=== PATIENT | female | born 1985 | race Caucasian/White ===

== ENCOUNTER → 2023-01-23 09:09 | Outpatient (BNVA) | payer OTHER, SELFPAY | PROVIDERS: Visit Provider Physician Assistant Surgical ==

== ENCOUNTER 2023-02-20 10:57 | Outpatient (AMB) | payer OTHER, SELFPAY ==
--- NOTE | 2023-02-20 10:58 | MHC.OFFVISWM ---
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 Her highest weight was 287 earlier this year. Her goal is to live longer and be healthier. She reports first being concerned about her weight 6 -7 years ago, SYED 8, no therapist presently.She has tried multiple methods of weight loss including [employer]bal[employer] without permanent results. 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 Her had GBP at [email or web address] 2 years ago, lost 350 lbs. Has SS done a BMS December 2022 - no sleep apnea She wakes at:6;30 am bed at11 pm Breakfast: 10 - 11am - collagen drink - with vitamins. 2-3 eggs with cheese, Sometimes - Chicory coffee with monk fruit and sugar free creamer. OR Nutri plus - 20 gram protein shake with coconut milk Lunch: 2pm- protein (chicken or tuna) in a wrap or sandwich. OR has soup. water Dinner: 7pm - protein and rice. - often the same thing. Vegetables 1-2 times per week. water After dinner:nothing Other snacks: none Liquids: [place] or diet soda (coke) twice per week with lunch. No fruit juices Alcohol intake: none, tobacco: none, marijuana: none Exercise: has gym membership - not for 2 months, nothing at home. Doing PT now for disclocated shoulder from 2 months. Last mammogram: never Last pap smear: has appt today control method:none for 10 years - see gymn today and will discuss SYED:8 ESS:8 GERD6: QOL:68 PFSH Surgical History No history of previous surgery Family History Mother No problems noted. Father No problems noted. Brother Diabetes Sister Arthritis Social History Alcohol intake: never Patient Tobacco Use Status: Never used Tobacco Physical Exam Vital Signs: Last Vital Signs Temp 97.7 F 02/20/23 11:03 Pulse 66 02/20/23 11:03 BP 114/57 L 02/20/23 11:03 Pulse Ox 95 02/20/23 11:03 Oxygen Delivery Method Room Air 02/20/23 11:03 BMI result Body Mass Index 45.9 Const General: cooperative, no acute distress and well developed Nutritional Appearance: obese Orientation/consciousness: patient oriented x3 HEENT Head: Yes normal to inspection Neck Neck: Yes normal visual inspection Thyroid: Thyroid normal Resp Effort & Inspection: normal respiratory effort Auscultation: clear to auscultation bilaterally Cardio Rate: regular rate Rhythm: regular rhythm Heart sounds: S1 normal heart sound present, S2 normal heart sound present and no murmurs GI Inspection: No distended, Yes Abdominal panniculus present and Yes obesity Palpation (GI): Soft to palpation, nontender and no guarding Skin Other: af ew area of folliculitis on abdomen General skin exam: no rashes or lesions noted and other (warm and dry) Wounds: no wounds Hair: normal Neuro General: patient oriented x3 Extrem General: Yes no pedal edema and Yes no calf tenderness Psych Attitude: cooperative Thought process: Normal thought process present Thought content: Normal thought content present Insight: Good insight present (Psych) Judgement: Good judgement present (Psych) Assessment & Plan Assessment & Plan (1) Morbid obesity: Code(s): E66.01 - Morbid (severe) obesity due to excess calories Plan: This is a 37 yo woman with morbid obesity who will start SW program to prepare for bariatric surgery. Blood work, h pylori , CXR, ECG, Abd ULS and UGI have been ordered. She is being scheduled for RD and BH initial consultations. She will start SWL classes and watch at 3 classes before her next appt with Kerline. 1. Adequate sleep of 7-8 hours per night discussed 2. Healthy meal plan - All meals/MR's need to take 20 minutes to complete 8am - 30 gram shake - Orgain and UAM 11 am - bar or yogurt/cc 3 pm- 30 gram shake 7 pm- dinner of 6 oz lean protein, 6 oz vegetable, 1 serving fruit - needs to learn varitey of vegetables and proteins Exercise - Cardio 4 d week = treadmill at speed 2.8, incline 3-5 - to burn 300 calories OR elliptical OR LS 2mile videos 3 d/ wk - TBP The importance of avoiding and breast feeding for at least 18 months after bariatric surgery was discussed in the information session and was reinforced today. Will discuss with gym today Pt has purchase dbody composition analyzer (recommended list given to patient) and weight herself weekly. Next appt with me in 3 weeks. Text me with any questions and weekly weights. Patient is morbidly obese and is not considered stable at this time.?I spent a total of 60 minutes reviewing/updating records, examining the patient and counseling the patient on weight management as detailed above. Orders: Orders Vitamin B12 and Folate Today Z01.818 - Encounter for other preprocedural examination Comprehensive Met. Panel Today Z01.818 - Encounter for other preprocedural examination C Reactive Protein Today Z01.818 - Encounter for other preprocedural examination Ferritin Today Z01.818 - Encounter for other preprocedural examination Hemoglobin A1c Today Z01.818 - Encounter for other preprocedural examination Insulin Today Z01.818 - Encounter for other preprocedural examination IRON PROFILE Today Z01.818 - Encounter for other preprocedural examination Lipid Panel Today Z01.818 - Encounter for other preprocedural examination PTHI Today Z01.818 - Encounter for other preprocedural examination TSH reflex Free T4 Today Z01.818 - Encounter for other preprocedural examination Vitamin A Today Z01.818 - Encounter for other preprocedural examination Vitamin B1 Today Z01.818 - Encounter for other preprocedural examination Vitamin D 25-OH Total Today Z01.818 - Encounter for other preprocedural examination Zinc Today Z01.818 - Encounter for other preprocedural examination ECG 12 lead EKG Today Z.818 - Encounter for other preprocedural examination FL upper GI w air Today Z01.818 - Encounter for other preprocedural examination Complete Blood Count Auto Diff Today Z01.818 - Encounter for other preprocedural examination H Pylori Breath Test Today Z01.818 - Encounter for other preprocedural examination US abdomen comp w elastography Today Z01.818 - Encounter for other preprocedural examination XR chest 2V Today Z01.818 - Encounter for other preprocedural examination Referrals Behavioral Health Referral Z01.818 - Encounter for other preprocedural examination Nutrition/Dietitian Referral Z01.818 - Encounter for other preprocedural examination Coding Level of Care Code New Pt Level 5 (65308) Diagnoses Morbid obesity E66.01
[2023-02-20 11:03] VITALS: BP 114/57; PULSE 66; TEMP 36.5; O2SAT 95; BMI 45.9
== END 2023-02-20 12:12 | disposition home or self-care (01) ==
PROVIDERS: Visit Provider Physician Assistant
DX: E66.01 Morbid (severe) obesity due to excess calories (principal); Z68.42 Body mass index [BMI] 45.0-49.9, adult
CPT/HCPCS: 99205

== ENCOUNTER 2023-02-20 10:57 | Outpatient (REF) | payer OTHER, SELFPAY ==
[2023-02-23 12:40] LABS: H Pylori Breath Test Negative (Negative)
== END 2023-02-20 10:58 | disposition home or self-care (01) ==
LOC: HO.LNP 10:57
PROVIDERS: Visit Provider Physician Assistant
DX: Z01.818 Encounter for other preprocedural examination (principal); E66.01 Morbid (severe) obesity due to excess calories
CPT/HCPCS: 36415; 83013; 99202; 99211

== ENCOUNTER 2023-02-24 11:48 | Outpatient (REF) | payer OTHER, SELFPAY ==
[2023-02-24 12:06] LABS: MANUAL DIFF FLAG NO
[2023-02-24 13:23] LABS: Basophils Percent Auto 0.2 % (0-2); Eosinophils Absolute Auto 0.1 X10*3/uL (0.0-0.4); Eosinophils Percent Auto 1.1 % (0-4); Hematocrit 40.4 % (37.0-47.0); Hemoglobin 13.2 g/dl (12.0-16.0); Imm Gran Abs Auto 0.01 X10*3/uL (0.00-0.03); Imm Gran Pct Auto 0.2 % (0.0-0.4); Lymphocytes Absolute Auto 1.7 X10*3/uL (1.2-4.9); Lymphocytes Percent Auto 31.6 % (20-40); Mean Corpuscular HGB Conc 32.7 g/dl (31.0-35.0); Mean Corpuscular Hemoglobin 28.3 pg (27.0-33.0); Mean Corpuscular Volume 86.5 fL (80.0-98.0); Mean Platelet Volume 10.6 fL (9.4-12.3); Monocytes Absolute Auto 0.3 X10*3/uL (0.1-1.2); Monocytes Percent Auto 6.1 % (2-11); Neutrophils Absolute Auto 3.2 x10*3/uL (2.0-8.3); Neutrophils Percent Auto 60.8 % (45-73); Platelet Count 323 X10*3/uL (160-400); Red Blood Count 4.67 X10*6/uL (4.20-5.50); Red Cell Distribution Width 12.7 % (11.0-16.0); White Blood Count 5.3 X10*3/uL (4.8-10.8)
[2023-02-24 15:31] LABS: Alanine Aminotransferase 25 U/L (0-31); Alkaline Phosphatase 38 U/L (39-117); Anion Gap 12 (12-20); Aspartate Amino Transferase 21 U/L (5-31); Bilirubin Total 0.4 mg/dL (0.0-1.0); Blood Urea Nitrogen 14 mg/dL (9-16); C Reactive Protein 1.06 mg/dL (< or = 0.50); Calcium 9.2 mg/dL (8.4-10.2); Carbon Dioxide 25 mmol/L (22-29); Chloride 109 mmol/L (96-108); Cholesterol 172 mg/dL; Estimated Glomerular Filt Rate > 60; Ferritin 80 ng/mL (10-122); Glucose Random 87 mg/dL (60-115); HDL Cholesterol 41 mg/dL; Iron 103 mcg/dL (30-160); LDL Cholesterol Calculated 115 mg/dl; Percent Iron Saturation 38 % (15-50); Potassium 3.7 mmol/L (3.3-5.1); Sodium 142 mmol/L (135-145); TSH reflex Free T4 1.59 uIU/mL (0.32-4.0); Total Iron Binding Capacity 273 mcg/dL (228-428); Total Protein 7.7 g/dL (6.5-8.0); Triglycerides 84 mg/dL; Unsaturated Iron Binding 170 ug/dL; Vitamin D 25-OH Total 31.3 ng/mL (>30)
[2023-02-24 15:36] LABS: Folate 12.4 ng/mL (> or = 4.0); Vitamin B12 601 pg/mL (200-900)
[2023-02-24 18:34] LABS: Insulin 7 uU/mL (2-29)
[2023-02-25 03:25] LABS: Estimated Average Glucose 94 mg/dL; Hemoglobin A1c % 4.9 %
[2023-02-27 12:04] LABS: PTHI 64 pg/mL (16-77)
[2023-02-28 21:09] LABS: Zinc 68 mcg/dL (60-130)
[2023-03-02 14:34] LABS: Vitamin A 36 mcg/dL (38-98)
[2023-03-02 14:49] LABS: Vitamin B1 10 nmol/L (8-30)
== END 2023-02-24 11:49 | disposition home or self-care (01) ==
LOC: HO.LAB 11:48
PROVIDERS: Visit Provider Physician Assistant
DX: Z01.818 Encounter for other preprocedural examination (principal)
CPT/HCPCS: 36415; 80053; 80061; 82306; 82607; 82728; 82746; 83036; 83525; 83540; 83970; 84425; 84443; 84590; 84630; 85025; 86140

== ENCOUNTER 2023-02-27 09:59 | Outpatient (REF) | payer OTHER, SELFPAY ==
--- NOTE | ~2023-02-27 | XR_ITS ---
EXAMINATION: XR CHEST CLINICAL INFORMATION: Encounter for preprocedural COMPARISON: None TECHNIQUE: 2 views of the chest. FINDINGS: Heart size normal. No focal consolidation to suggest pneumonia. No pleural effusion. Degenerative changes in the thoracic spine. There is no gross pneumothorax. XR/XR chest 2V IMPRESSION: No focal consolidation to suggest pneumonia.
--- NOTE | ~2023-02-27 | FL_ITS ---
EXAMINATION: XR FLUOROSCOPY UPPER GI WITH AIR CLINICAL INFORMATION: Obesity. Preop. COMPARISON: None available. TECHNIQUE: Upper GI was performed using thin and thick barium and effervescent granules FINDINGS: Esophageal motility is normal. There is mild gastroesophageal reflux. No esophageal hernia. The stomach and duodenum are normal. No fold thickening, mass, ulcer or stricture is seen. FLUOROSCOPY TIME: 0.8 minutes DOSE AREA PRODUCT: 7.9 paz per centimeter squared. 19 saved fluoroscopic images. FL/FL upper GI w air IMPRESSION: Mild gastroesophageal reflux otherwise unremarkable exam.
--- NOTE | 2023-02-27 10:43 | ECG_ITS ---
Test Reason : PREOP Blood Pressure : / mmHG Vent. Rate : 056 BPM Atrial Rate : 056 BPM P-R Int : 138 ms QRS Dur : 094 ms QT Int : 412 ms P-R-T Axes : 028 005 023 degrees QTc Int : 397 ms Sinus bradycardia with sinus arrhythmia Otherwise normal ECG No previous ECGs available Referred By: Mildred Mckinnon Electronically Signed By:BHARGAV JONES MD
== END 2023-02-27 10:00 | disposition home or self-care (01) ==
LOC: HO.XRAY 09:59
PROVIDERS: Visit Provider Physician Assistant
DX: Z01.818 Encounter for other preprocedural examination (principal)
CPT/HCPCS: 71046; 74246; 93005

== ENCOUNTER → 2023-02-27 09:59 | Outpatient (BNV) | payer OTHER, SELFPAY | PROVIDERS: Visit Provider Radiology Diagnostic Radiology | DX: Z01.818 Encounter for other preprocedural examination (principal) | CPT/HCPCS: 74246 ==

== ENCOUNTER → 2023-02-27 10:43 | Outpatient (BNV) | payer OTHER, SELFPAY | PROVIDERS: Visit Provider Internal Medicine Cardiovascular Disease | DX: R00.1 Bradycardia, unspecified (principal) | CPT/HCPCS: 93010 ==

== ENCOUNTER → 2023-03-13 08:41 | Outpatient (BNVA) | payer OTHER, SELFPAY | PROVIDERS: Visit Provider Dietitian, Registered | DX: E66.01 Morbid (severe) obesity due to excess calories (principal); Z68.41 Body mass index [BMI] 40.0-44.9, adult; Z71.3 Dietary counseling and surveillance | CPT/HCPCS: 97802 ==

== ENCOUNTER 2023-03-15 08:57 | Outpatient (REF) | payer OTHER, SELFPAY ==
--- NOTE | ~2023-03-15 | US_ITS ---
EXAMINATION: US COMPLETE ABDOMEN WITH LIVER ELASTOGRAPHY CLINICAL INFORMATION: Recently COMPARISON: None available. TECHNIQUE: Real-time imaging of the abdominal viscera. Noninvasive ultrasound liver fibrosis assessment is performed using Reed ElastPQ point quantification shear wave elastography (2D-SWE) with a C5-2 MHz transducer. Multiple elastography samples are obtained. FINDINGS: PANCREAS: Predominantly obscured by overlying bowel gas ABDOMINAL AORTA: The proximal, middle, and distal aortic segments are normal in caliber. INFERIOR VENA CAVA: Visualized portions are normal. LIVER: Diffuse increased echogenicity. No focal lesion or intrahepatic biliary duct dilatation. The right lobe measures 16.6 cm in length. The left lobe measures 11.1 cm in length. Portal flow is hepatopedal Shear wave liver elastography median stiffness is 1.36 m/s (reference: normal median stiffness is 1.3 m/s or less). IQR/median stiffness to assess sampling precision is 0.1 (reference: good quality data set is IQR/median stiffness of 0.15 or less). GALLBLADDER: Normal. The gallbladder is physiologically distended without evidence of stones, sludge, polyps, wall thickening or pericholecystic fluid. COMMON BILE DUCT: Normal in caliber measuring 0.3 cm in diameter. RIGHT KIDNEY: Normal. No hydronephrosis. No renal calculi or focal parenchymal lesions. The kidney measures 12.9 cm in maximum dimension. LEFT KIDNEY: Normal. No hydronephrosis. No renal calculi or focal parenchymal lesions. The kidney measures 12.1 cm in maximum dimension. SPLEEN: Normal. The spleen measures 9.8 cm in maximum dimension. FREE FLUID: None. US/US abdomen comp w elastography IMPRESSION: 1. Changes of hepatic steatosis. Limited visualization of the pancreas. 2. Liver elastography: In the absence of other known clinical signs, measurements rule out compensated advanced chronic liver disease. If there are known clinical signs, further testing may be needed for confirmation. REFERENCE: Society of Radiologists in Ultrasound Liver Stiffness Thresholds (2020): LIVER STIFFNESS THRESHOLDS: *Liver Stiffness equal or less than 1.3 m/s: High probability of being normal. *Liver Stiffness less than 1.7 m/s: In the absence of other known clinical signs, rules out compensated advanced chronic liver disease. *Liver Stiffness 1.7-2.1 m/s: Suggestive of compensated advanced chronic liver disease but need further test for confirmation. *Liver Stiffness over 2.1 m/s: Rules in compensated advanced chronic liver disease. *Liver Stiffness over 2.4 m/s: Suggestive of clinically significant portal hypertension. QUALITY OF DATA SET: *IQR/Median value equal or less than 0.15 implies a quality data set. *IQR/Median value over 0.15 implies a poor quality data set. SIGNIFICANT CHANGE FROM PRIOR EXAM: Significant change if liver stiffness measurement is 10% or greater from prior exam. OTHER CONSIDERATIONS: The stage of liver fibrosis may be overestimated in the setting of acute hepatitis, liver inflammation, elevated liver function tests, hepatic vascular congestion, obstructive cholestasis, non-fasting state, and infiltrative diseases such as amyloidosis and lymphoma. In some patients with NAFLD, the liver stiffness thresholds for compensated advanced chronic liver disease may be lower. In causes other than viral hepatitis and NAFLD, liver stiffness thresholds are not well established.
== END 2023-03-15 08:58 | disposition home or self-care (01) ==
LOC: HO.US 08:57
PROVIDERS: Visit Provider Physician Assistant
DX: Z01.818 Encounter for other preprocedural examination (principal)
CPT/HCPCS: 76705; 76981; 99212

== ENCOUNTER 2023-03-15 09:35 | Outpatient (AMB) | payer OTHER, SELFPAY ==
--- NOTE | 2023-03-15 09:46 | A.OFFVIS_ITS ---
Intake VS Expanded 03/15/23 09:55 Height 5 ft 3 in Weight 253 lb 6.4 oz BMI 44.9 BP 110/60 Blood Pressure Location Rt brachial Blood Pressure Position Sitting Pulse 69 Pulse Source Pulse Oximeter Temp 97.4 F Temperature Source Temporal Artery Scan Pulse Oximetry 99 Oxygen Delivery Method Room Air Body Fat 133.2 Body Fat Percentage 52.6 Free Fat Mass 120.2 Muscle Mass 114.0 Visceral Mass 15.0 Water Mass 86.2 BMR 1,766 Intake Visit Reasons: (OV) F/U SWL Allergies pepperoni Allergy (Unknown, Uncoded 08/29/19 00:00) hives HPI HPI Comments History of Present Illness Details This is the patients second appt for SWL. Starting weight was 263.8 lbs on 02/20/23. TBWL is 10.4 lbs or 3.9% TBWL. Meal plan: 8-9 am - chickory coffee - monk fruit and UAM 9:30 am - Nutriplus - 1.5 scoops =30 grams with UAM 1pm - 6oz frozen mixed vegetables -4d/wk, 3 d raw vegetable. 6 oz chicken, tuna, lean beef. bazmati and sweet potato 5pm - yogurt or hb egg 7-8 pm - another meal Exercise plan: none yet Pre op work up completed as follows: SWL classes - 10/22 appts - [facility] 03/27 appts - follow up 03/31 H pylori - negative Labs - vit a defic CXR and ECG - both normal ULS - not read yet, done today UGI - mild reflux PFSH Surgical History No history of previous surgery Family History Mother No problems noted. Father No problems noted. Brother Diabetes Sister Arthritis Social History Alcohol intake: never Patient Tobacco Use Status: Never used Tobacco Physical Exam Vital Signs: Last Vital Signs Temp 97.4 F 03/15/23 09:55 Pulse 69 03/15/23 09:55 BP 110/60 03/15/23 09:55 Pulse Ox 99 03/15/23 09:55 Oxygen Delivery Method Room Air 03/15/23 09:55 BMI result Body Mass Index 44.9 Assessment & Plan Assessment & Plan (1) Morbid obesity: Code(s): E66.01 - Morbid (severe) obesity due to excess calories Plan: Good start with 3.9 % , needs to make some minor adjustments to her meal plan. Stop bazmati rice, add 1 serving fruit per day, more variety in vegetables. Exercise - must start now. minimum of 4d/ week either LS 2 miles or walk for 1.5 miles in 30 minutes. Text me progress and I will offer recommendations. Next appt with me in 3 weeks, all upcoming appts reviewed. Patient is morbidly obese and is not considered stable at this time. I spent 30 minutes in total with patient reviewing/updating records, examining the patient and counseling the patient on weight management as detailed above. Coding Level of Care Code Est Pt Level 4 (33171) Diagnoses Morbid obesity E66.01
[2023-03-15 09:55] VITALS: BP 110/60; PULSE 69; TEMP 36.3; O2SAT 99; BMI 44.9
== END 2023-03-15 10:37 | disposition home or self-care (01) ==
PROVIDERS: Visit Provider Physician Assistant
DX: E66.01 Morbid (severe) obesity due to excess calories (principal); Z68.41 Body mass index [BMI] 40.0-44.9, adult
CPT/HCPCS: 99214

== ENCOUNTER 2023-03-27 08:33 | Outpatient (AMB) | payer OTHER, SELFPAY ==
--- NOTE | 2023-03-27 08:44 | MHC.WMTHER ---
Intake Intake Visit Reasons: (OV) BH Intake Allergies pepperoni Allergy (Unknown, Uncoded 08/29/19 00:00) hives PFSH Surgical History No history of previous surgery Family History Mother No problems noted. Father No problems noted. Brother Diabetes Sister Arthritis Social History Alcohol intake: never Patient Tobacco Use Status: Never used Tobacco Behavioral Health Assessment Weight Management Therapy Therapy Notes Details Pt is looking to have weight loss surgery to help improve her health and quality of life. Pt reported seeing a therapist many years ago however does not have one currently. She reported no history of problems with drugs or alcohol. She did report some drinking more so than usual after her mom due to depression. Pt has never been hospitalized for psychiatric reasons and never been diagnosed with an eating disorder. Presenting Concerns Referral Source provider Reason for referral weight loss surgery evaluation Precipitating Event obesity Living Situation Current Living Situation Own At risk of losing current housing? No Satisfied with current living situation? Yes Comments Pt lives with her and their dog. Food/Weight/Diet Expectations of change weight loss and maintenance History/Relationship with food She reported being raised with having to clear her plate and eat until she was done. Recently prior to loosing 20lbs she would eat out everyday, was not cooking at home, sandwiches. Some occasional emotional eating especially after her mother . History/Relationship with weight Pt stated that she has been struggling with her weight for about 10 years now. In 2005 her mother at age 41 and then she gained 80-100lbs. History/Relationship with dieting [facility] 6 years ago lost 80lbs. Recently lost 20lbs prior to the program through life style and nutrition changes. Binge Eating Do you frequently eat large amounts of food in short periods of time, not feeling physically hungry? No Do you feel out of control when you eat a large amount of food in a short period of time? No Do you eat large amounts of food rapidly and typically alone? Yes Night Eating Do you wake up at least once during the night to eat? No If you wake up in the night, do you find that it is necessary to eat something in order to fall back asleep? No Do you have little or no appetite in the morning and feel very hungry in the evening, often overeating between dinner and when you go to bed? Yes Social History Family history and relationship Pt is the middle child and when her mother in 2005 she had to come home from college and take care of her siblings. She reported that was a major life shift for her. She was raised by her mother and step father. She is currently to her for ten years and has no children. 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 best friend Community support network of people who hold each other accountability Cultural/Ethnic information Legal Involvement and History Current or historical involvement with the legal system? none Education Highest grade completed degree in aesthetics. Preferred learning style Auditory, Verbal, Written, Learn by doing and Visual Currently enrolled in educational program? No Interested in further educational program? 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 No Meaningful activities personal training Financial Situation Describe current financial situation Comfortable Financial assistance? None Service Service? No Mental Health and Addiction Treatment Current/Past substance abuse? No Current/Past addictive behavior concerns? No Medical and Physical Health Summary Physical exam in the last year? Yes Pain Screening Current pain? No Pain in the last few months? No Medications Is the patient compliant with medications? Yes Does the patient have Cutler Guardian in place? Not applicable Does the patient use complimentary health approaches? No Trauma/Abuse History History of trauma? Yes Questionnaires PHQ-9 Over the last 2 weeks, how often have you been bothered by any of the following problems? 1. Little interest or pleasure in doing things: not at all 2. Feeling down, depressed, or hopeless: not at all 3. Trouble falling or staying asleep, or sleeping too much: not at all 4. Feeling tired or having little energy: several days 5. Poor appetite or overeating: several days 6. Feeling bad about yourself - or that you are a failure or have let yourself or your family down: not at all 7. Trouble concentrating on things, such as reading the newspaper or watching television: not at all 8. Moving or speaking so slowly that other people could have noticed. Or the opposite - being so fidgety or restless that you have been moving around a lot more than usual: not at all 9. Thoughts that you would be better off or of hurting yourself in some way: not at all Total score: 2 Source: Developed by Drs. Marcos Cheek, Caryn Robledo, Simon Schulte and colleagues, with an educational lana from [employer]. Binge Eating Scale Group 1 A. I don't feel self-conscious about my wt. or body size when I'm with others. B. I feel concerned about how I look to others, but it normally does not make me fell disappointed with myself C. I do get self-conscious about my appearance and wt. which makes me feel disappointed in myself. D. I feel very self-conscious about my wt. and frequently I feel intense shame and disgust for myself. I try to avoid social contacts because of my self-consciousness. Response Group 1: B Group 2 A. I don't have any difficulty eating slowly in the proper manner. B. Although I seem to gobble down foods, I don't end up feeling stuffed because of eating to much. C. At times, I tend to eat quickly and then, I feel uncomfortably full afterwards. D. I have the habit of bolting down my food, without really chewing it. When this happens I usually feel uncomfortably stuffed because I've eaten to much. Response Group 2: C Group 3 A. I feel capable to control my eating urges when I want to. B. I feel like I have failed to control my eating more than the average person. C. I feel utterly helpless when it comes to feeling in control of my eating urges. D. Because I feel so helpless about controlling my eating I have become very desperate about trying to get control. Response Group 3: A Group 4 A. I don't have the habit of eating when I'm bored. B. I sometimes eat when I'm bored, but often I'm able to get busy and get my mind off food. C. I have a regular habit of eating when I'm bored, but occasionally, I can use some other activity to get my mind off eating. D. I have a strong habit of eating when I'm bored. Nothing seems to help me breath the habit. Response Group 4: B Group 5 A. I'm usually physically hungry when I eat something. B. Occasionally, I eat something on impulse even though I really am not hungry. C. I have the regular habit of eating foods, that I might not really enjoy, to satisfy a hungry feeling even though physically, I don't need the food. D. Although I'm not physically hungry, I get a hungry feeling in my mouth that only seems to be satisfied when I eat a food, like sandwich, that fills my mouth. Sometimes, when I eat the food to satisfy my mouth hunger, I then spit the food out so I won't gain weight. Response Group 5: B Group 6 A. I don't feel any guilt or self-hate after I overeat. B. After I overeat, occasionally I feel guilt or self-hate. C. Almost all the time I experience strong guilt or self-hate after I overeat. Response Group 6: B Group 7 A. I don't lose total control of my eating when dieting even after periods when I overeat. B. Sometimes when I eat a forbidden food on a diet, I feel like I blew it and eat even more. C. Frequently, I have the habit of saying to myself, I've blown it now, why not go all the way, when I overeat on a diet. When that happens I eat more. D. I have a regular habit of starting a strict diets for myself but I break the diets by going on an eating binge. My life seems to be either a feast or famine. Response Group 7: B Group 8 A. I rarely eat so much food that I feel uncomfortably stuffed afterwards. B. Usually about once a month, I each such a quantity of food, I end up feeling very stuffed. C. I have regular periods during the month when I eat large amounts of food, either at mealtime or at snacks. D. I eat so much food that I regularly feel quite uncomfortable after eating and sometimes a bit nauseous. Response Group 8: B Group 9 A. My level of calorie intake does not go up very high or go down very low on a regular basis. B. Sometimes after I overeat, I will try to reduce my caloric intake to almost nothing to compensate for the excess calories I've eaten. C. I have a regular habit of overeating during the night. It seems that my routine is not to be hungry in the morning but overeat in the evening. D. In my adult years, I have had week-long periods where I practically starve myself. This follows periods when I overeat. It seems I live a life of either feast or famine. Response Group 9: A Group 10 A. I usually am able to stop eating when I want to. I know when enough is enough. B. Every so often, I experience a compulsion to eat which I can't seem to control. C. Frequently, I experience strong urges to eat which I seem unable to control, but at other times I can control my eating urges. D. I feel incapable of controlling urges to eat. I have a fear of not being able to stop eating voluntarily. Response Group 10: B Group 11 A. I don't have any problem stopping eating when I feel full. B. I usually can stop eating when I feel full but occasionally overeat leaving me feeling uncomfortably stuffed. C. I have a problem stopping eating once I start and usually I feel uncomfortably stuffed after I eat a meal. D. Because I have a problem not being able to stop eating when I want, I sometimes have to induce vomiting to relieve my stuffed feeling. Response Group 11: B Group 12 A. I seem to eat just as much when I'm with others, Family social gatherings as when I'm by myself. B. Sometimes, when I'm with other persons, I don't eat as much as I want to eat because I'm self-conscious about my eating. C. Frequently, I eat only a small amount of food when others are present, because I'm very embarrassed about my eating. D. I feel so ashamed about overeating that I pick times to overeat when I know no one will see me. I feel like a closet eater. Response Group 12: A Group 13 A. I eat three meals a day with only an occasional between meal snack. B. I eat 3 meals a day, but I also normally snack between meals. C. When I am snacking heavily, I get in the habit of skipping regular meals. D. There are regular periods when I seem to be continually eating, with no planned meals. Response Group 13: A Group 14 A. I don't think much about trying to control unwanted eating urges. B. At least some of the time, I feel my thoughts are pre-occupied with trying to control my eating urges. C. I feel that frequently I spend much time thinking about how much I ate or about trying not to eat anymore. D. It seems to me that most of my waking hours are pre-occupied by thoughts about eating or not eating. I feel like I'm constantly struggling not to eat. Response Group 14: A Group 15 A. I don't think about food a great deal. B. I have strong craving for food but they last only for brief periods of time. C. I have days when I can't seem to think about anything else but food. D. Most of my days seem to be pre-occupied with thoughts about food. I feel like I live to eat. Response Group 15: B Group 16 A. I usually know whether or not I'm physically hungry. I take the right portion of food to satisfy me. B. Occasionally, I feel uncertain about knowing whether or not I'm physically hungry. A these times it's hard to know how much food I should take to satisfy me. C. Even though I might know how many calories I should eat, I don't have any idea what is a normal amount of food for me. Response Group 16: A Binge Eating Score: 11 Score less than 17 Minimal Risk Score between 18-26 Moderate Risk Score between 27-46 High Risk Assessment & Plan Assessment & Plan (1) Adjustment disorder, unspecified: Code(s): F43.20 - Adjustment disorder, unspecified (2) Morbid obesity: Code(s): E66.01 - Morbid (severe) obesity due to excess calories Plan Pt does not have any serious mental health barriers, she is cleared for surgery when ready. She is asking for additional therapeutic support to address some trauma from loss of her mother. Coding Level of Care Code Psy Diag Luigi (44691) Diagnoses Adjustment disorder, unspecified F43.20 Morbid obesity E66.01 Time Spent (min) 50
== END 2023-03-27 12:50 | disposition home or self-care (01) ==
PROVIDERS: Visit Provider Counselor Mental Health
DX: F43.20 Adjustment disorder, unspecified (principal); E66.01 Morbid (severe) obesity due to excess calories
CPT/HCPCS: 90791

== ENCOUNTER → 2023-03-27 08:33 | Outpatient (BNVA) | payer OTHER, SELFPAY | PROVIDERS: Visit Provider Counselor Mental Health ==

== ENCOUNTER 2023-03-31 09:12 | Outpatient (AMB) | payer OTHER, SELFPAY ==
--- NOTE | 2023-03-31 09:06 | MHC.AMNUTRGE ---
Intake VS Expanded 03/31/23 09:22 Height 5 ft 3 in Weight 246 lb BMI 43.6 Intake Visit Reasons: VIDEO F/U SWL Allergies pepperoni Allergy (Unknown, Uncoded 08/29/19 00:00) hives HPI Nutrition Presentation Details GENERAL [employer]ARM [employer] weight 263# - current weight 246# Reason for consult elevated BMI Diet Assmnt Details Switched protein shakes to Nutriplus. donig 2 shakes, 1 yogurt and 1 meal . Not measuring protein portions, but using small containers. Has not purchased a food scale Exercise: more walking is also doing some upper body strength training. Is interested in getting a new gym membership. wants to do aqua aerobics. SWL online classes 10/22 scored very well . Her had GBP at [employer] and is doing great losing over 360lbs Dietary counseling reduction Diagnosis Nutrition problem #1 overweight/obesity As related to (etiology) #1 excess energy intake and physical inactivity As evidenced by (sign/symptom) #1 high BMI Monitoring/Goals Nutrition problem monitoring total energy intake, level of knowledge/skill, total PRO intake, total CHO intake and weight Outcome progress progressing Learning/Education Readiness to learn excellent Stages of change action Educational materials provided Yes (all preop nutrition handouts ) Most Recent Diabetes Results: Cholesterol 172 mg/dL 02/24/23 HDL Cholesterol 41 mg/dL 02/24/23 Triglycerides 84 mg/dL 02/24/23 Creatinine 0.67 mg/dL (0.5-1.4) 02/24/23 Blood Urea Nitrogen 14 mg/dL (9-16) 02/24/23 Sodium 142 mmol/L (135-145) 02/24/23 Potassium 3.7 mmol/L (3.3-5.1) 02/24/23 Chloride 109 mmol/L (96-108) H 02/24/23 Carbon Dioxide 25 mmol/L (22-29) 02/24/23 Calcium 9.2 mg/dL (8.4-10.2) 02/24/23 AST 21 U/L (5-31) 02/24/23 ALT 25 U/L (0-31) 02/24/23 Total Protein 7.7 g/dL (6.5-8.0) 02/24/23 Albumin 4.0 g/dL (3.5-5.0) 02/24/23 [facility] Surgical History No history of previous surgery Family History Mother No problems noted. Father No problems noted. Brother Diabetes Sister Arthritis Social History Alcohol intake: never Patient Tobacco Use Status: Never used Tobacco Assessment & Plan Assessment & Plan (1) Morbid obesity: Code(s): E66.01 - Morbid (severe) obesity due to excess calories Patient Instructions: Patient is cleared from a nutrition standpoint for bariatric surgery she is doing great she is making changes slowly but nonetheless, is making progress at a pace that is sustainable for her. Complete online classes. Will schedule follow-up in a few weeks to answer any questions she may have regarding postop nutrition - but patient may cancel this appointment if she feels it is not needed. Telehealth Telehealth Location of provider rendering services: practice address Location of patient: address on file Patient Identification confirmed using: Name, : Yes Telehealth method: video Patient verbally consented to treatment: Yes Patient verbally consented to billing insurance company: Yes Patient informed of any privacy concerns related to visit: Yes Minutes spent on Phone/Video with Pt.: 20 Coding Level of Care Code Nutr Indiv Subseq ([id number]) Diagnoses Morbid obesity E66.01 Time Spent (min) 20
[2023-03-31 09:22] VITALS: BMI 43.6
== END 2023-03-31 09:22 | disposition home or self-care (01) ==
LOC: HO.HBS 09:12
PROVIDERS: Visit Provider Dietitian, Registered
DX: E66.01 Morbid (severe) obesity due to excess calories (principal)

== ENCOUNTER → 2023-03-31 09:12 | Outpatient (BNVA) | payer OTHER, SELFPAY | PROVIDERS: Visit Provider Dietitian, Registered | DX: E66.01 Morbid (severe) obesity due to excess calories (principal); Z68.41 Body mass index [BMI] 40.0-44.9, adult; Z71.3 Dietary counseling and surveillance | CPT/HCPCS: 97803 ==

== ENCOUNTER 2023-04-14 08:59 | Outpatient (AMB) | payer OTHER, SELFPAY ==
--- NOTE | 2023-04-14 09:00 | A.OFFVIS_ITS ---
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 TBWL is 16.7 lbs or 6.7%. Her had LSG 2 years ago - and she has made lots of correction changes. Meal plan - 8am - coffee with - monk fruit 9am - shake 1pm - yogurt or meal (unmeasured prtoein and vegetable) meal Or yogurt at 4pm 5-6 shake Exercise at 7 pm - treadmill - 3d/wk, speed ?, incline 2, calories burn ?. Pre op work up completed as follows: SWL classes - 02/21 appts - Deepali 03/27, follow up on 05/01 RD appts - follow up 03/31, cleared has follow up on 04/18 H pylori - negative Labs - vit a defic CXR and ECG - both normal ULS - fatty liver, R 16.6 cm, L 11.1 cm UGI - mild reflux PFSH Surgical History No history of previous surgery Family History Mother No problems noted. Father No problems noted. Brother Diabetes Sister Arthritis Social History Alcohol intake: never Patient Tobacco Use Status: Never used Tobacco Assessment & Plan Assessment & Plan (1) Steatosis, liver: Code(s): K76.0 - Fatty (change of) liver, not elsewhere classified Plan: PT has a very good meal plan but has not started regualr effective exercise yet. Only change tomeal plan is to measuure in forkfuls - 10 forks each. We reviewed complications of surgery today per her request. Exercise - treadmill 3 d/week speed 3.0, incline 1-7 - 300 calories. TBP 2 d/wk TExt me progress with exercise next week. Next appt with me in 3 weeks. Patient is morbidly obese and is not considered stable at this time. I spent 30 minutes in total with patient reviewing/updating records, examining the patient and counseling the patient on weight management as detailed above. (2) Morbid obesity: Code(s): E66.01 - Morbid (severe) obesity due to excess calories Coding Level of Care Code Est Pt Level 4 (26278) Diagnoses Steatosis, liver K76.0 Morbid obesity E66.01
[2023-04-14 09:06] VITALS: BP 112/63; PULSE 67; RESP 16; TEMP 36.3; O2SAT 96; BMI 42.8
== END 2023-04-14 09:50 | disposition home or self-care (01) ==
PROVIDERS: Visit Provider Physician Assistant
DX: E66.01 Morbid (severe) obesity due to excess calories (principal); Z68.42 Body mass index [BMI] 45.0-49.9, adult; K76.0 Fatty (change of) liver, not elsewhere classified
CPT/HCPCS: 99213

== ENCOUNTER → 2023-04-14 08:59 | Outpatient (BNVA) | payer OTHER, SELFPAY | PROVIDERS: Visit Provider Physician Assistant | DX: E66.01 Morbid (severe) obesity due to excess calories (principal); Z68.41 Body mass index [BMI] 40.0-44.9, adult; K76.0 Fatty (change of) liver, not elsewhere classified | CPT/HCPCS: 99212 ==

== ENCOUNTER → 2023-04-18 08:56 | Outpatient (BNVA) | payer OTHER, SELFPAY | PROVIDERS: Visit Provider Dietitian, Registered | DX: E66.9 Obesity, unspecified (principal); Z71.3 Dietary counseling and surveillance | CPT/HCPCS: 97803 ==

== ENCOUNTER → 2023-05-01 08:29 | Outpatient (BNVA) | payer OTHER, SELFPAY | PROVIDERS: Visit Provider Counselor Mental Health ==

== ENCOUNTER 2023-05-03 11:22 | Outpatient (AMB) | payer OTHER, SELFPAY ==
--- NOTE | 2023-05-03 11:02 | A.OFFWM_ITS ---
Intake Intake Visit Reasons: VIDEO BH F/U Allergies pepperoni Allergy (Unknown, Uncoded 04/14/23 09:05) hives [facility] Surgical History No history of previous surgery Family History Mother No problems noted. Father No problems noted. Brother Diabetes Sister Arthritis Social History Alcohol intake: never Patient Tobacco Use Status: Never used Tobacco Behavioral Health Assessment Weight Management Therapy Therapy Notes Details Pt talked about her successes and struggles. She has a community of people she is connected to, has been talking more about childhood trauma and other adverse events. Patient has felt an increase in anxiety symptoms since starting the program. Worst Things List for EMDR in next session. Pt is looking to have weight loss surgery to help improve her health and quality of life. Pt reported seeing a therapist many years ago however does not have one currently. She reported no history of problems with drugs or alcohol. She did report some drinking more so than usual after her mom due to depression. Pt has never been hospitalized for psychiatric reasons and never been diagnosed with an eating disorder. Presenting Concerns Referral Source provider Reason for referral weight loss surgery evaluation Precipitating Event obesity Living Situation Current Living Situation Own At risk of losing current housing? No Satisfied with current living situation? Yes Comments Pt lives with her and their dog. Food/Weight/Diet Expectations of change weight loss and maintenance History/Relationship with food She reported being raised with having to clear her plate and eat until she was done. Recently prior to loosing 20lbs she would eat out everyday, was not cooking at home, sandwiches. Some occasional emotional eating especially after her mother . History/Relationship with weight Pt stated that she has been struggling with her weight for about 10 years now. In 2005 her mother at age 41 and then she gained 80-100lbs. History/Relationship with dieting [facility] 6 years ago lost 80lbs. Recently lost 20lbs prior to the program through life style and nutrition changes. Binge Eating Do you frequently eat large amounts of food in short periods of time, not feeling physically hungry? No Do you feel out of control when you eat a large amount of food in a short period of time? No Do you eat large amounts of food rapidly and typically alone? Yes Night Eating Do you wake up at least once during the night to eat? No If you wake up in the night, do you find that it is necessary to eat something in order to fall back asleep? No Do you have little or no appetite in the morning and feel very hungry in the evening, often overeating between dinner and when you go to bed? Yes Social History Family history and relationship Pt is the middle child and when her mother in 2005 she had to come home from college and take care of her siblings. She reported that was a major life shift for her. She was raised by her mother and step father. She is currently to her for ten years and has no children. 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 best friend Community support network of people who hold each other accountability Cultural/Ethnic information Legal Involvement and History Current or historical involvement with the legal system? none Education Highest grade completed degree in aesthetics. Preferred learning style Auditory, Verbal, Written, Learn by doing and Visual Currently enrolled in educational program? No Interested in further educational program? 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 No Meaningful activities personal training Financial Situation Describe current financial situation Comfortable Financial assistance? None Service Service? No Mental Health and Addiction Treatment Current/Past substance abuse? No Current/Past addictive behavior concerns? No Medical and Physical Health Summary Physical exam in the last year? Yes Pain Screening Current pain? No Pain in the last few months? No Medications Is the patient compliant with medications? Yes Does the patient have Cutler Guardian in place? Not applicable Does the patient use complimentary health approaches? No Trauma/Abuse History History of trauma? Yes Assessment & Plan Assessment & Plan (1) Adjustment disorder, unspecified: Code(s): F43.20 - Adjustment disorder, unspecified (2) Morbid obesity: Code(s): E66.01 - Morbid (severe) obesity due to excess calories Plan Pt does not have any serious mental health barriers, she is cleared for surgery when ready. She is asking for additional therapeutic support to address some trauma from loss of her mother. Telehealth Telehealth Location of provider rendering services: other Location of patient: address on file Patient Identification confirmed using: Name, : Yes Telehealth method: video Patient verbally consented to treatment: Yes Patient verbally consented to billing insurance company: Yes Patient informed of any privacy concerns related to visit: Yes Minutes spent on Phone/Video with Pt.: 30 Coding Level of Care Code Tele Psytx 30 mins (30183) Diagnoses Adjustment disorder, unspecified F43.20 Morbid obesity E66.01 Time Spent (min) 30
== END 2023-05-03 13:06 | disposition home or self-care (01) ==
LOC: HO.HBST 11:22
PROVIDERS: Visit Provider Counselor Mental Health
DX: F43.20 Adjustment disorder, unspecified (principal); E66.01 Morbid (severe) obesity due to excess calories
CPT/HCPCS: 90832

== ENCOUNTER → 2023-05-03 11:22 | Outpatient (BNVA) | payer OTHER, SELFPAY | PROVIDERS: Visit Provider Counselor Mental Health ==